=== PATIENT | female | born 1950 | race Caucasian/White ===

== ENCOUNTER 2020-03-07 10:24 | Outpatient (CLI) | payer MEDICARE, SELFPAY ==
--- NOTE | ~2020-03-07 | US_ITS ---
EXAMINATION: US venous doppler LE RT EXAM DATE: 03/07/2020 12:12 INDICATION: Right calf pain. TECHNIQUE: Multiple grayscale, color flow and Doppler images of the right lower extremity deep venous system were obtained and reviewed. There is no prior study for comparison. FINDINGS: The right common femoral, femoral and profunda veins demonstrate normal color flow, respira tory variation, augmentation and compressibility. Compressibility, color flow confirmed within the r ight popliteal, posterior tibial, peroneal, and greater saphenous veins. IMPRESSION: 1. No right lower extremity deep venous thrombosis. Reviewed, dictated and finalized at location A.
== END 2020-03-07 10:25 | disposition home or self-care (01) ==
LOC: CHSIMG 10:30
PROVIDERS: PCP Internal Medicine; Visit Provider Internal Medicine
DX: M79.661 Pain in right lower leg (principal)
CPT/HCPCS: 93971

== ENCOUNTER 2023-08-19 10:10 | Outpatient (CLI) | payer MEDICARE, SELFPAY ==
[2023-08-19 10:26] LABS: Basophils Absolute Auto 0.02 K/mm3 (0.00-0.10); Basophils Percent Auto 0.3 % (0.0-1.0); Eosinophils Absolute Auto 0.04 K/mm3 (0.02-0.50); Eosinophils Percent Auto 0.6 % (1.0-6.0); Hematocrit 43.8 % (35.0-42.0); Immature Granulocyte Absolute 0.02 K/mm3 (0.00-0.00); Immature Granulocyte Percent A 0.3 % (0.0-0.0); Lymphocytes Absolute Auto 1.87 K/mm3 (1.10-4.50); Lymphocytes Percent Auto 27.4 % (18.0-42.0); Mean Corpuscular Hemoglobin 28.9 pg (27.0-31.0); Mean Corpuscular Volume 90.5 fL (78.0-102.0); Mean Platelet Volume 9.4 fl (9.2-11.8); Monocytes Absolute Auto 0.71 K/mm3 (0.10-0.90); Monocytes Percent Auto 10.4 % (2.0-11.0); Neutrophils Absolute Auto 4.2 K/mm3 (1.7-7.2); Platelet Count Result 215 K/mm3 (150-420); Red Blood Count 4.84 M/mm3 (4.20-5.40); Red Cell Distribution Width 13.2 % (11.6-14.4); White Blood Count 6.8 K/mm3 (4.8-10.8)
[2023-08-19 10:50] LABS: Appearance Urine Clear (Clear); Bilirubin Urine Negative (Negative); Blood Urine Negative (Negative); Color Urine Light Yellow (Yellow); Glucose Urine UA Negative (Negative); Ketones Urine Negative (Negative); Leukocyte Esterase Ur 1+ (Negative); Nitrate Urine Negative (Negative); Protein Urine Negative (Negative); Urobilinogen Urine 0.2 mg/dL (0.2-1.0); pH Urine 7.5 (5.0-8.0)
[2023-08-19 11:10] LABS: Add Urine Microscopic? YES; RBC Urine None seen /hpf (0-2); WBC Urine 0-3 /hpf (0-3)
[2023-08-19 11:11] LABS: Amorphous Sediment Urine Moderate; Bacteria Urine 1+ /hpf; Squamous Epithelial Cell Urine Few /hpf (Few)
[2023-08-19 11:17] LABS: Alanine Aminotransferase 25 U/L (14-59); Albumin Level 3.7 g/dL (3.4-5.0); Alkaline Phosphatase 70 U/L (46-116); Anion Gap 8 mmol/L (8-16); Aspartate Amino Transferase 14 U/L (15-37); Bilirubin,Total 0.4 mg/dL (0.00-1.00); Blood Urea Nitrogen 16 mg/dL (7-18); Calcium 8.9 mg/dL (8.5-10.1); Carbon Dioxide 32 mmol/L (21-32); Chloride 108 mmol/L (98-108); Cholesterol 223 mg/dL (0-200); Estimated Glomerular Filt Rate > 60; Glucose 93 mg/dL (70-99); HDL Direct 65 mg/dL (40-60); LDL Cholesterol Calculated 135 mg/dL (<130); Osmolality Calculated 307 mOsm/kg (285-295); Potassium 4.4 mmol/L (3.5-5.1); Sodium 148 mmol/L (136-145); Thyroid Stimulating Hormone 0.01 uIU/mL (0.36-3.74); Total Protein 6.8 g/dL (6.4-8.2); Triglycerides 113 mg/dL (0-150)
== END 2023-08-19 10:11 | disposition home or self-care (01) ==
PROVIDERS: PCP Internal Medicine; Visit Provider Internal Medicine
DX: I10 Essential (primary) hypertension (principal); Z78.0 Asymptomatic menopausal state
CPT/HCPCS: 36415; 80053; 80061; 81001; 84443; 85025

== ENCOUNTER 2023-08-20 09:22 | Outpatient (CLI) | payer MEDICARE, SELFPAY ==
--- NOTE | ~2023-08-20 | XR_ITS ---
Clinical Indication: Hypertension, hyponatremia PA and lateral views of the chest: Comparison: 02/21/2018 Findings: The lungs are clear, without evidence of focal consolidation or pleural effusion. Cardiome diastinal silhouette is within normal limits. Bones and soft tissues are unremarkable. Impression: Normal chest. Reviewed, dictated and finalized at [facility]. TER CHECKER Impression: Normal chest.
--- NOTE | 2023-08-20 09:32 | ECG_ITS ---
Measurements Intervals [place] Rate: 53 P: 56 OK: 157 QRS: 46 QRSD: 95 T: 62 QT: 435 QTc: 410 Interpretive Statements SINUS BRADYCARDIA MINIMAL Q WAVES- INFERIOR LEADS BORDERLINE T WAVE ABNORMALITY- ANTERIOR LEADS BASELINE ARTIFACT- I, III, AVR, AVL BORDERLINE ECG NO PREVIOUS ECG AVAILABLE FOR COMPARISON Electronically Signed On 08-20-2023 9:49:24 ENGINEERING ANALYST by Phil Lynch D.O.
== END 2023-08-20 09:23 | disposition home or self-care (01) ==
PROVIDERS: PCP Internal Medicine; Visit Provider Internal Medicine
DX: I10 Essential (primary) hypertension (principal); R00.1 Bradycardia, unspecified
CPT/HCPCS: 71046; 93005

== ENCOUNTER 2023-08-23 08:36 | Outpatient (CLI) | payer MEDICARE, SELFPAY ==
[2023-08-23 08:56] LABS: Bilirubin Urine Negative (Negative); Blood Urine Negative (Negative); Color Urine Light Yellow (Yellow); Glucose Urine UA Negative (Negative); Ketones Urine Negative (Negative); Leukocyte Esterase Ur 3+ (Negative); Nitrate Urine Negative (Negative); Protein Urine Negative (Negative); Specific Grav Ur 1.015 (1.010-1.020); Urobilinogen Urine 0.2 mg/dL (0.2-1.0)
[2023-08-23 09:03] LABS: Add Urine Microscopic? YES; Appearance Urine Slightly Cloudy (Clear); Bacteria Urine 2+ /hpf; RBC Urine None seen /hpf (0-2); Squamous Epithelial Cell Urine Few /hpf (Few)
[2023-08-23 09:58] LABS: Alanine Aminotransferase 27 U/L (14-59); Albumin Level 3.7 g/dL (3.4-5.0); Alkaline Phosphatase 70 U/L (46-116); Anion Gap 7 mmol/L (8-16); Aspartate Amino Transferase 16 U/L (15-37); Bilirubin,Total 0.5 mg/dL (0.00-1.00); Blood Urea Nitrogen 17 mg/dL (7-18); Calcium 8.7 mg/dL (8.5-10.1); Carbon Dioxide 31 mmol/L (21-32); Chloride 105 mmol/L (98-108); Estimated Glomerular Filt Rate > 60; Glucose 88 mg/dL (70-99); Osmolality Calculated 296 mOsm/kg (285-295); Potassium 4.4 mmol/L (3.5-5.1); Sodium 143 mmol/L (136-145); Total Protein 6.9 g/dL (6.4-8.2)
== END 2023-08-23 08:37 | disposition home or self-care (01) ==
LOC: CHSLAB 08:44
PROVIDERS: PCP Internal Medicine; Visit Provider Internal Medicine
DX: I10 Essential (primary) hypertension (principal); E87.0 Hyperosmolality and hypernatremia
CPT/HCPCS: 36415; 80053; 81001

== ENCOUNTER 2023-08-30 13:01 | Outpatient (CLI) | payer MEDICARE, SELFPAY ==
--- NOTE | ~2023-08-30 | MM_ITS ---
EXAMINATION: MM screening kathy BI w jes HISTORY: Screening mammogram TECHNIQUE: Craniocaudal and mediolateral oblique 3-D tomosynthesis images were obtained and synthetic 2-D images were generated. CAD analysis was submitted and interpreted. COMPARISON: 05/10/2011 bilateral screening mammogram BREAST PARENCHYMAL COMPOSITION: The breasts are almost entirely fatty. FINDINGS: There is no evidence of suspicious mass, calcification, or architectural distortion to sugg est malignancy in either breast. There has been no suspicious interval change. IMPRESSION: 1. No mammographic evidence of malignancy. 2. Recommend routine screening mammography in one year. BI-RADS Category 1: Negative Reviewed, dictated and finalized at location A.
--- NOTE | ~2023-08-30 | DEXA_ITS ---
Bone Density Report Name: NICK OSBORNE Age: 73 Sex: Female Ethnicity: White Date of : 1950 Indication: postmenopausal; screening for osteoporosis; Referring Provider: Dane Alvarez Study: Bone densitometry was performed. Exam Date: August 30, 2023 Accession number: [id number] Bone Density: Region BMD T-score Z-score Classification AP Spine(L1-L4) 0.826 -2.0 0.3 Osteopenia Femoral Neck (Left) 0.623 -2.0 0.0 Osteopenia Total Hip (Left) 0.815 -1.0 0.7 Normal Femoral Neck (Right) 0.548 -2.7 -0.7 Osteoporosis Total Hip (Right) 0.740 -1.7 0.0 Osteopenia Femoral Neck Mean 0.586 -2.4 -0.4 Osteopenia Total Hip Mean 0.777 -1.3 0.4 Osteopenia World Health Organization criteria for BMD impression classify patients as: Normal (T-score at or above -1.0), Osteopenia (T-score between -1.0 and -2.5), or Osteoporosis (T-score at or below -2.5). 10-year Fracture Risk: FRAX not reported because: Some T-score for Spine Total or Hip Total or Femoral Neck at or below -2.5 Clinical Information Provided by Patient: Patient maximum height was 65 Menopause Age: 35 Does not regularly consume dairy products Drinks caffeinated beverages Onset of menses at age 12 Number of children 0 Impression: The patient has osteoporosis, based on the Right Femoral Neck T-score. Discussion: INCREASED RISK OF FRACTURE. BONE DENSITY IS UNDESIRABLY LOW AT ONE OR MORE SKELETAL SITES, CONSISTENT WITH POSTMENOPAUSAL OSTEOPOROSIS. This patient's lowest T-score meets the World Health Organization's (WHO) criteria for osteoporosis at one or more sites (T-score -2.5 or below). In untreated patients, the risk of osteoporotic fracture increases approximately two-fold for each 1.0 SD decrease in T-score. Low bone density is not the only risk factor for fracture; also consider factors such as patient's age, frailty or poor health, risk of falling, risk of injury, previous osteoporotic fracture, family history of osteoporosis, cigarette smoking, low body weight, etc. Not everyone with low bone mineral density has osteoporosis; osteomalacia and other metabolic bone disorders should also be considered. Patients who have osteoporosis should be evaluated for specific diseases and conditions (secondary causes) that may cause or contribute to bone loss. The [place] [employer]ocrinologists (AACE) and National Osteoporosis Foundation (NOF) recommend pharmacologic intervention for all postmenopausal women whose T-score is in this range. The patient should follow a healthful lifestyle (good nutrition with adequate calcium and vitamin D, and appropriate weight-bearing exercise). Follow-Up: Consider a repeat BMD and Vertebral Fracture Assessment (VFA) exam in 2 years or sooner if medically necessary, to reassess this
== END 2023-08-30 13:02 | disposition home or self-care (01) ==
LOC: CHSIMG 13:06
PROVIDERS: PCP Internal Medicine; Visit Provider Internal Medicine
DX: Z12.31 Encounter for screening mammogram for malignant neoplasm of breast (principal); Z78.0 Asymptomatic menopausal state; M85.89 Other specified disorders of bone density and structure, multiple sites; M81.0 Age-related osteoporosis without current pathological fracture
CPT/HCPCS: 77063; 77067; 77080

== ENCOUNTER 2023-09-06 14:50 | Outpatient (CLI) | payer MEDICARE, OTHER, SELFPAY ==
--- NOTE | 2023-09-06 14:54 | ECHO_ITS ---
Patient Info Name: Leigh Howard Age: 73 years : 1950 Gender: Female Ht: 65 in Wt: 210 lbs BSA: 2.13 m2 HR: 65 bpm BP: 180 / 92 mmHg Heart Rhythm: Sinus Rhythm Technical Quality: Good Exam Date: 09/06/2023 2:49 PM Exam Location: Echo Lab Patient Status: Outpatient Admit Date: 09/06/2023 Staff Ordering Physician: Dane Alvarez MD Buggy Loader: Mago Dc RDCS Attending Provider: Dane Alvarez MD Exam Type: CA echo doppler color flow Study Info Indications - abn ekg Complete two-dimensional, color flow and Doppler transthoracic echocardiogram is performed. Summary 1. Complete two-dimensional, color flow and Doppler transthoracic echocardiogram is performed. 2. Left ventricular chamber dimension is normal. 3. Left ventricular systolic function is normal, estimated at 60-65%. 4. The left ventricular diastolic function is grade I diastolic dysfunction. 5. E/e' 2 is not elevated. 6. Left atrial chamber dimension is mildly enlarged. 7. There is mild aortic valve sclerosis. 8. There is mild aortic valve regurgitation. 9. No pulmonary hypertension, estimated pulmonary arterial systolic pressure is 14 mmHg. Left Ventricle E/e' 2 is not elevated. Left ventricular chamber dimension is normal. Left ventricular systolic function is normal, estimated at 60-65%. The left ventricular diastolic function is grade I diastolic dysfunction. Right Ventricle Right ventricular systolic function is normal and with normal TAPSE 3.9 cm. Right ventricular chamber dimension is normal. Left Atria Left atrial chamber dimension is mildly enlarged. Right Atria Right atrial chamber dimension is normal. Aortic Valve The aortic valve is trileaflet. There is mild aortic valve sclerosis. There is no aortic valve stenosis. There is mild aortic valve regurgitation. Pulmonic Valve There is no pulmonic regurgitation. Mitral Valve There is no mitral valve stenosis. There is no mitral valve regurgitation. Tricuspid Valve There is no tricuspid valve regurgitation. No pulmonary hypertension, estimated pulmonary arterial systolic pressure is 14 mmHg. Pericardium/Pleural There is no pericardial effusion. Inferior Vena Cava Normal inferior vena cava with >50% collapse upon inspiration consistent with normal right atrial pressure, 5 mmHg. Aorta The aortic root size at the sinus of Valsalva is normal. Left Ventricular Outflow Tract Name Value Normal LVOT 2D LVOT Diameter 2.0 cm LVOT Doppler LVOT Peak Velocity 112 cm/s LVOT Peak Gradient 5 mmHg LVOT Mean Gradient 3 mmHg LVOT VTI 37 cm LVOT VTI/AV VTI Ratio 0.9 LVOT Stroke Volume 116 ml Pulmonic Valve Name Value Normal RVOT Doppler RVOT Peak Gradient 2 mmHg PV Doppler
== END 2023-09-06 14:51 | disposition home or self-care (01) ==
LOC: CHSIMG 14:51
PROVIDERS: PCP Internal Medicine; Visit Provider Internal Medicine
DX: R94.31 Abnormal electrocardiogram [ECG] [EKG] (principal); I35.8 Other nonrheumatic aortic valve disorders
CPT/HCPCS: 93306

== ENCOUNTER 2023-09-07 01:16 | Day surgery (SDC) | payer MEDICARE, OTHER, SELFPAY ==
[2023-08-31 16:11] VITALS: BMI 32.8
[2023-09-07 07:08] VITALS: BP 181/77; PULSE 56; RESP 18; TEMP 36.4; O2SAT 99; BMI 33.0
[2023-09-07] MEDS: LACTATED RINGERS 1,000 ML 150 ML IV CONT (07:12)
--- NOTE | 2023-09-07 07:45 | P.PNAN_ITS ---
Anes - Initial Pre Proc Eval Procedure: Operation Date: 09/07/23 08:30 Proposed Procedures p Screening Colonoscopy - Xander Mathias DO Date/Time: 09/07/23 07:45 Surgeon: Xander Mathias DO Pre Op Diagnosis: Screening for Malignant Neoplasm of Colon Patient Data Age: 73 Gender: F Height: 1.68 m Weight: 92.8 kg Last Vital Signs Temp 97.5 F L 09/07/23 07:08 Pulse 56 L 09/07/23 07:08 Resp 18 09/07/23 07:08 BP 181/77 H 09/07/23 07:08 Pulse Ox 99 09/07/23 07:08 O2 Del Method Room Air 09/07/23 07:08 Allergies Allergy/AdvReac Type Severity Reaction Status Date / Time No Known Allergies Allergy Verified 09/07/23 07:07 Home Medications Medication Instructions Recorded Confirmed Type diphenhydramine HCl 25 mg tablet 25 mg PO BID PRN Sinus Symptoms 08/31/23 09/07/23 History (Benadryl Allergy) ondansetron HCl 4 mg tablet 4 mg PO Q6H PRN Nausea And 09/06/23 Rx Vomiting #4 tabs Patient hx anesthesia problems: none Family hx anesthesia problems: none Results Review: All pre-operative results and documents have been reviewed as part of the pre- operative evaluation. [facility] Social History Social History Smoking status: Never smoker Alcohol intake: current Substance use: never Substance use type: does not use Living arrangements: with family Spiritual care concerns: No Anes - Eval Final PreProcedure Day of Procedure 09/07/23 07:45 Patient weight: obese Heart: regular rate and rhythm Lungs: clear to auscultation Airway: Mallampati scale class II Neurological: alert and oriented Last oral intake: >/= 8 hours ASA classification: II Emergent: no Anesthetic plan: proceed Anesthesia type and monitoring: general GIVS and standard monitoring Results Review: All pre-operative results and documents have been reviewed as part of the pre- operative evaluation. Informed Consent: The patient's anesthetic plan and its attendant risks and benefits were discussed with the patient/family/POA. Questions were solicited and answers provided to the satisfaction of the patient/family/POA.
--- NOTE | 2023-09-07 07:59 | PM.IMHP ---
H&P: HPI History of Present Illness Date/Time: 09/07/23 07:59 Chief Complaint: Screening for colorectal cancer Narrative: this is a 73-year-old woman who presents for colonoscopy. Her last colonoscopy was 20 years ago. She denies any hematochezia or melena. She denies any family history of colon cancer. Review of Systems Review of Systems: All systems reviewed & are unremarkable except as noted in HPI and below Constitutional: Constitutional: Denies chills, Denies fever(s), Denies headache(s) and Denies weight loss Eyes: Eyes: Denies change in vision ENT: Denies dizziness, Denies headache(s), Denies neck mass and Denies throat swelling Cardiovascular: Cardiovascular: Denies chest pain, Denies lightheadedness and Denies dyspnea Respiratory: Respiratory: Denies cough, Denies dyspnea and Denies wheezing Gastrointestinal: Gastrointestinal: Denies abdominal pain, Denies change in bowel habits, Denies nausea and Denies vomiting Genitourinary: Genitourinary: Denies hematuria and Denies dysuria Musculoskeletal: Musculoskeletal: Reports as per HPI Integumentary/Breasts: Skin/Breast: Reports as per HPI Neurologic: Denies dizziness and Denies headache(s) Allergic/Immunologic: Allergic/Immunologic: Denies throat swelling and Denies wheezing PMFSH Social History Social History Smoking status: Never smoker Alcohol intake: current Substance use: never Substance use type: does not use Living arrangements: with family Spiritual care concerns: No Meds Home Medications and Allergies Home Medications Medication Instructions Recorded Confirmed Type diphenhydramine HCl 25 mg tablet 25 mg PO BID PRN Sinus Symptoms 08/31/23 09/07/23 History (Benadryl Allergy) ondansetron HCl 4 mg tablet 4 mg PO Q6H PRN Nausea And 09/06/23 Rx Vomiting #4 tabs Allergies Allergy/AdvReac Type Severity Reaction Status Date / Time No Known Allergies Allergy Verified 09/07/23 07:07 Vital Signs Vital Signs - 24 hr 09/07/23 07:08 Temperature 36.4 C L Pulse Rate 56 L Respiratory Rate 18 Blood Pressure 181/77 H Pulse Oximetry 99 Oxygen Delivery Room Air Exam Const: General: no acute distress and alert Orientation/consciousness: patient oriented x3 HENMT: Head: normocephalic and atraumatic Ears: hearing grossly normal bilaterally Face/Nose/Sinus: Normal nares present Mouth: Yes Normal oral and palatal mucosa present Eyes: Periorbital: periorbital findings normal Sclera: sclerae normal EOM: EOMs intact bilaterally Neck: Neck: normal visual inspection, no lymphadenopathy and trachea midline Chest: Chest palpation & inspection: normal inspection of the chest Resp: Effort & Inspection: normal respiratory effort Auscultation: clear to auscultation bilaterally Cardio: Jugular venous distension: no JVD Rate: regular rate Rhythm: regular rhythm Heart sounds: S1 normal heart sound present and S2 normal heart sound present Peripheral pulses: Peripheral pulses 2+ throughout GI: Inspection: normal to inspection GI Palp: Yes Soft to palpation, No Tenderness to palpation present (GI), No Guarding due to palpation present (GI) and No Rebound tenderness present Percussion: Yes normal to percussion Auscultation: normal bowel sounds : General: Yes no CVA tenderness Back/Spine/Pelvis: Back: no CVA tenderness Neuro: General: patient oriented x3, no focal motor deficits and CN's II-XI intact bilaterally Cognition (Neuro): normal cognition Speech: normal speech Motor exam (neuro): 5/5 motor strength present throughout Extrem: General: capillary refill normal and no clubbing, cyanosis or edema Assessment and Plan Assessment and plan (1) Screening for colorectal cancer: Code(s): Z12.11 - Encounter for screening for malignant neoplasm of colon; Z12.12 - Encounter for screening for malignant neoplasm of rectum Status: Acute Assessment and Plan: I have recommended colonoscop
[2023-09-07 08:52] VITALS: BP 125/64; PULSE 58; RESP 19; O2SAT 99
[2023-09-07 09:02] VITALS: BP 137/68; PULSE 54; RESP 16; O2SAT 99
[2023-09-07 09:12] VITALS: BP 157/70; PULSE 53; RESP 16; O2SAT 99
== END 2023-09-07 09:36 | disposition home or self-care (01) ==
PROVIDERS: PCP Internal Medicine; Visit Provider Surgery
PROC: 0DJD8ZZ Inspection of Lower Intestinal Tract, Via Natural or Artificial Opening Endoscopic (ICD-10-PCS; CPT 45378; principal; 2023-09-07 08:30)
DX: Z12.11 Encounter for screening for malignant neoplasm of colon (principal); D12.0 Benign neoplasm of cecum; D12.3 Benign neoplasm of transverse colon; D12.5 Benign neoplasm of sigmoid colon; K57.30 Diverticulosis of large intestine without perforation or abscess without bleeding; E66.9 Obesity, unspecified; Z68.33 Body mass index [BMI] 33.0-33.9, adult
CPT/HCPCS: 45385; 88305; J2704; J7120

== ENCOUNTER 2023-09-13 09:01 | Outpatient (CLI) | payer MEDICARE, OTHER, SELFPAY ==
--- NOTE | ~2023-09-13 | US_ITS ---
EXAMINATION: US thyroid DATE: 09/13/2023 09:56 INDICATION: Hyperthyroidism. TECHNIQUE: Multiple ultrasound images of the thyroid were obtained. COMPARISON: None. FINDINGS: The right thyroid lobe measures 3.8 x 1.6 x 1.7 cm. The left thyroid lobe measures 5.8 x 2.7 x 2.7 c m. In the right thyroid lobe, there is an 11 mm solid, hypoechoic, wider than tall nodule with lobul ated margin without echogenic foci (TI-RADS TR4). In the left thyroid lobe, there is a 16 mm solid, h yperechoic, wider than tall nodule with smooth margin without echogenic foci (TR3). In the left thyro id lobe, there is a 3.4 cm predominantly solid, hypoechoic, wider than tall nodule with smooth margin without echogenic foci (TR4). IMPRESSION: 1. Multinodular goiter. Ultrasound-guided fine-needle aspiration of the 3.4 cm left thyroid nodule is recommended. Reviewed, dictated and finalized at location E.
== END 2023-09-13 09:02 | disposition home or self-care (01) ==
LOC: CHSIMG 09:04
PROVIDERS: PCP Internal Medicine; Visit Provider Internal Medicine
DX: E05.90 Thyrotoxicosis, unspecified without thyrotoxic crisis or storm (principal); E04.2 Nontoxic multinodular goiter
CPT/HCPCS: 76536

== ENCOUNTER 2024-05-26 14:23 | Outpatient (CLI) | payer MEDICARE, OTHER, SELFPAY ==
--- NOTE | ~2024-05-26 | XR_ITS ---
XR ribs LT 2V DATE: 05/26/2024 14:57 INDICATION: Left rib pain TECHNIQUE: COMPARISON: None FINDINGS: There is a subtle minimally displaced anterior left fifth recent rib fracture. No other rib fracture or rib bone destruction is noted. Diffuse osteopenia. No left lung infiltrate, consolidation, pleural effusion or pneumothorax is detected. IMPRESSION: Subtle minimally displaced anterior recent left fifth rib fracture Reviewed, dictated and finalized at location A. WHEEL ALIGNMENT SPECIALIST
--- NOTE | ~2024-05-26 | XR_ITS ---
XR lumbar spine 2-3V DATE: 05/26/2024 14:57 INDICATION: Mid lower back pain TECHNIQUE: AP, lateral, coned lateral lumbosacral views COMPARISON: None FINDINGS: There is minimal lumbar levoscoliosis. Osteopenia. There is prominent degenerative spurring in the lower thoracic spine, especially T12-L1, to a lesser extent L1-2. There is moderate loss of height at the L4-5 and L5-S1 interspaces. There is degenerative change at the lumbar apophyseal joints with associated slight grade 1 anterolis thesis at L3-4 and L4-5. No fracture or bone destruction. Included lower thoracic and lumbar pedicles are intact. The sacroiliac joints appear normal. IMPRESSION: Osteopenia Minimal lumbar levoscoliosis Multilevel degenerative disc disease, most prominent at L4-5 and L5-S1 Degenerative spurring of the lower thoracic and lumbar spine Reviewed, dictated and finalized at location A. PICKER CLOTH
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
== END 2024-05-26 14:24 | disposition home or self-care (01) ==
LOC: CHSIMG 14:25
PROVIDERS: PCP Internal Medicine; Visit Provider Internal Medicine
DX: R07.81 Pleurodynia (principal); M54.50 Low back pain, unspecified; S22.32XA Fracture of one rib, left side, initial encounter for closed fracture; M85.88 Other specified disorders of bone density and structure, other site; M41.86 Other forms of scoliosis, lumbar region; M51.369 Other intervertebral disc degeneration, lumbar region without mention of lumbar back pain or lower extremity pain; M43.06 Spondylolysis, lumbar region
CPT/HCPCS: 71100; 72072; 72100

== ENCOUNTER 2024-07-27 16:27 | Outpatient (RCR) | payer MEDICARE, OTHER, SELFPAY ==
--- NOTE | 2024-07-27 17:41 | OPREHPOC ---
Outpatient Therapy Plan of Care This is a Multidisciplinary Plan of Care that may contain components documented by all disciplines (PT, OT, and ST.) PT Problem 1 PT Problem #1 Knowledge Deficit PT Goal 1 Goal / Goal Update 1. independent and compliant with HEP Target Visit 6 PT Problem 2 PT Problem #2 Pain PT Goal 1 Goal / Goal Update 1. decrease pain at worst to 4/10 or less in the lower back Target Visit 12 PT Problem 3 PT Problem #3 Impaired Range of Motion PT Goal 1 Goal / Goal Update 1. 30 degrees bilateral active lumbar side bending 2. 15 degrees active lumbar extension 3. active lumbar flexion to the ankles 4. no gowers sign Target Visit 12 PT Problem 4 PT Problem #4 Impaired Strength PT Goal 1 Goal / Goal Update 1. improve bilateral hip strength to 4/5 or better overall 2. improve bilateral knee strength to 4+/5 or better overall 3. patient to easily transition in and out of bed (supine) without assistance Target Visit 12 PT Problem 5 PT Problem #5 Impaired Functional Mobility PT Goal 1 Goal / Goal Update 1. oswestry to display less than 20% functional deficits 2. patient to lay on her back to sleep 3. sleep 4 nights a week or better without back pain 4. perform house hold duties with minimal back pain Target Visit 12
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
--- NOTE | 2024-08-21 15:31 | OPREHPOC ---
Outpatient Therapy Plan of Care This is a Multidisciplinary Plan of Care that may contain components documented by all disciplines (PT, OT, and ST.) PT Problem 1 PT Problem #1 Knowledge Deficit PT Goal 1 Goal / Goal Update 1. independent and compliant with HEP Target Visit 6 Progress Not Met PT Problem 2 PT Problem #2 Pain PT Goal 1 Goal / Goal Update 1. decrease pain at worst to 4/10 or less in the lower back Target Visit 12 Progress Not Met PT Problem 3 PT Problem #3 Impaired Range of Motion PT Goal 1 Goal / Goal Update 1. 30 degrees bilateral active lumbar side bending 2. 15 degrees active lumbar extension 3. active lumbar flexion to the ankles 4. no gowers sign Target Visit 12 Progress Not Met PT Problem 4 PT Problem #4 Impaired Strength PT Goal 1 Goal / Goal Update 1. improve bilateral hip strength to 4/5 or better overall -met 2. improve bilateral knee strength to 4+/5 or better overall -met 3. patient to easily transition in and out of bed (supine) without assistance Target Visit 12 Progress Partially Met PT Problem 5 PT Problem #5 Impaired Functional Mobility PT Goal 1 Goal / Goal Update 1. oswestry to display less than 20% functional deficits 2. patient to lay on her back to sleep 3. sleep 4 nights a week or better without back pain 4. perform house hold duties with minimal back pain Target Visit 12 Progress Not Met
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
--- NOTE | 2024-08-25 15:56 | OPREHPOC ---
Outpatient Therapy Plan of Care This is a Multidisciplinary Plan of Care that may contain components documented by all disciplines (PT, OT, and ST.) PT Problem 1 PT Problem #1 Knowledge Deficit PT Goal 1 Goal / Goal Update 1. independent and compliant with HEP Target Visit 6 Progress Not Met PT Problem 2 PT Problem #2 Pain PT Goal 1 Goal / Goal Update 1. decrease pain at worst to 4/10 or less in the lower back Target Visit 12 Progress Not Met PT Problem 3 PT Problem #3 Impaired Range of Motion PT Goal 1 Goal / Goal Update 1. 30 degrees bilateral active lumbar side bending 2. 15 degrees active lumbar extension 3. active lumbar flexion to the ankles 4. no gowers sign Target Visit 12 Progress Not Met PT Problem 4 PT Problem #4 Impaired Strength PT Goal 1 Goal / Goal Update 1. improve bilateral hip strength to 4/5 or better overall -not met 2. improve bilateral knee strength to 4+/5 or better overall -not met 3. patient to easily transition in and out of bed (supine) without assistance met Target Visit 12 Progress Partially Met PT Problem 5 PT Problem #5 Impaired Functional Mobility PT Goal 1 Goal / Goal Update 1. oswestry to display less than 20% functional deficits 2. patient to lay on her back to sleep. not met 3. sleep 4 nights a week or better without back pain 4. perform house hold duties with minimal back pain Target Visit 12 Progress Not Met
--- NOTE | 2024-08-25 15:56 | PTOPDC ---
Assessment and note entered by JT File, PT Evaluation Information Assessment Status Discharge ICD-10 Condition Codes (PT) Pain in low back M54.50 Onset 05/13/24 Subjective Information patient reports she is a little better since starting therapy, but overall still feels the same . she reports the pain has not resolved, and she still struggles with all her daily activities. she has to sleep on her side in bed, and pushes through the pain every day. Reported Pain Level Pain Score 5: Self Report Pain Score 6: Self Report Assessment PT Clinical Summary mrs. he presents to skilled PT for her 12th skilled therapy visit. she presents with continued pain and limited tolerance for standing and lumbar movement. she has met only HEP goal as of this date. due to a lack of significant change/ progress, we are going to DC skilled PT at this time, and she will follow up with her PCP for next steps. Plan of Care PT Services Indicated Yes
== END 2024-08-25 16:06 | disposition home or self-care (01) ==
LOC: CHSPT 16:27
PROVIDERS: PCP Internal Medicine; Visit Provider Internal Medicine
DX: M54.50 Low back pain, unspecified (principal)
CPT/HCPCS: 97014; 97110; 97140; 97150; 97161; 97530; G0283

== ENCOUNTER 2024-09-14 09:56 | Outpatient (CLI) | payer MEDICARE, OTHER, SELFPAY ==
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
--- OUTSIDE RECORDS SUMMARY | 2024-09-14 10:57 | XMS_ITS | Encounter Summary ---
Author Organization [facility] Address [address] [place] [address] Phone Care Team Providers Care Senior Restaurant Manager Name Role Phone Dane Alvarez MD Primary Care Provider [phone] Encounter Details Date Type Department Care Team (Late st Contact Info) Description 08/08/2024 Results Follow-Up [facility] Endocrinology Metabolism and Lipid [address] [facility] 5th [place] [address] [place] [address] Edyta Matos MD [address] [place] [address] Social History Tobacco Use Types Packs/Day Years Used Date Smoking Tobacco: Never Comments Unknown Sex and Gender Information Value Date Recorded Sex Assigned at Not on file Legal Sex Female 10:30 AM CDT Gender Identity Not on file Sexual Orientation Not on file documented as of this encounter Plan of Treatment Not on file documented as of this encounter Visit Diagnoses Not on filedocumented in this encounter Care Teams Senior Restaurant Manager Relationship Specialty Start Date End Date Dane Alvarez MD PCP - General Internal Medicine 09/14/23 documented as of this encounter
--- OUTSIDE RECORDS SUMMARY | 2024-09-14 10:57 | XMS_ITS | Clinical Summary ---
Author Organization [place] [id number] Address [address] [place] [address] Care Team Providers Care Hydraulic Jack Mechanic Name Role Phone Dane Alvarez MD Primary Care Provider [phone] Allergies No known active allergies Medications alendronate (FOSAMAX) 70 mg tablet PLEASE SEE ATTACHED FOR DETAILED DIRECTIONS 03/02/20 24 Active methIMAzole (TAPAZOLE) 5 mg tabletIndications:S ubclinical hyperthyroidism 2.5mg (half tab) po daily 45 tablet 1 06/26/19 25 Active Active Problems No known active problems Encounters Date Type Department Care Team Description 09/11/2024 12:01 PM CDT - 09/11/2024 11:59 PM CDT Hospital Encounter [facility] [address] [place] [address] Multinodular goiter Discharge Disposition: Discharge to home or self care 09/11/2024 Results Follow-Up [facility] Endocrinology Metabolism and Lipid [address] [facility] 5th [place] [address] [place] [address] Edyta Matos MD 08/08/2024 Results Follow-Up [facility] Endocrinology Metabolism and Lipid [address] [facility] 5th [place] [address] [place] [address] Edyta Matos MD 08/07/2024 Orders Only [facility] Endocrinology Metabolism and Lipid [address] [facility] 13th [place] [address] [place] [address] Edyta Matos MD 07/06/2024 Telephone [facility] Endocrinology Metabolism and Lipid [address] [facility] 5th [place] [address] [place] [address] Uzma Garrett RMA 06/16/2024 12:25 PM LOG SKIDDER - 06/16/2024 11:59 PM LOG SKIDDER Hospital Encounter [facility] Radiology [address] [place] [address] Discharge Disposition: Discharge to home or self care 06/16/2024 12:25 PM LOG SKIDDER - 06/16/2024 11:59 PM LOG SKIDDER Hospital Encounter [facility] Radiology [address] [place] [address] Subclinical hyperthyroidism; Multinodular goiter Discharge Disposition: Discharge to home or self care from Last 3 Months Social History Tobacco Use Types Packs/Day Years Used Date Smoking Tobacco: Never Comments Unknown Sex and Gender Information Value Date Recorded Sex Assigned at Not on file Legal Sex Female 10:30 AM CDT Gender Identity Not on file Sexual Orientation Not on file Obstetrics History Last Filed Vital Signs Vital Sign Reading Time Taken Comments Blood Pressure 141/84 05/12/2024 10:50 AM LOG SKIDDER Pulse 56 05/12/2024 10:50 AM LOG SKIDDER Temperature 36.7 C (98 F) 04/06/2024 3:02 PM CDT Respiratory Rate - - Oxygen Saturation - - Inhaled Oxygen Concentration - - Weight 94.3 kg (208 lb) 05/12/2024 10:50 AM LOG SKIDDER Height 165.1 cm (5' 5 ) 05/12/2024 10:50 AM LOG SKIDDER Body Mass Index 34.61 05/12/2024 10:50 AM LOG SKIDDER Plan of Treatment Health Maintenance Due Date Last Done Comments Breast Cancer Screening-Mammogram 1950 Colon Cancer Screening-Colonoscopy 1950 Depression Screening 1950 Fall Risk Assessment 1950 Hepatitis C Screening 1950 Osteoporosis Screening-Bone Density Scan 1950 DTaP/Tdap/Td Vaccine (1 - Tdap) 1961 Hepatitis B Screening 01/02/1968 Pneumococcal vaccine 65+ (1 of 1 - PCV) 01/02/2000 Zoster Vaccine (1 of 2) 01/02/2000 Well Visit 65+ 2015 Covid-19 Vaccine ( season) 2024 03/25/2021, 08/13/2020, 07/23/2020 Influenza Vaccine (#1) 2024 04/12/2015 Procedures Procedure Name Priority Date/Time Associated Diagnosis Comments US THYROID Schedule Routine, Read Routine (OP Routine) 09/11/2024 1:21 PM CDT Multinodular goiter T3, FREE Routine 08/07/2024 1:50 PM LOG SKIDDER TSH Routine 08/07/2024 1:50 PM LOG SKIDDER T4, FREE Routine 08/07/2024 1:50 PM LOG SKIDDER COPY(IES) SENT TO: Routine 08/07/2024 1:50 PM LOG SKIDDER NM THYROID IMAGING Schedule Routine, Read Routine (OP Routine) 06/16/2024 1:44 PM LOG SKIDDER Subclinical hyperthyroidism Multinodular goiter from Last 3 Months Results * US Thyroid (09/11/2024 1:21 PM CDT) Anatomical Region Laterality Modality Head and Neck N/A Ultrasound 09/11/2024 1:22 PM CDT Impressions 09/11/2024 1:22 PM CDT 1. Stable 3.8 cm TR4 left lower thyroid nodule with previous benign cytologic results for which fine needle aspiration was recommended. 2. Stable cytologically benign 2.0 cm left upper thyroid nodule. 3. No new suspicious thyroid nodules. ACR TI-RADS Recommendations FNA should only be recommended on a maximum of 2 nodules. A recommendation for follow-up should only be provided for a maximum of 4 nodules. TR5 (>=7 points) (risk of malignancy > 20%) >=1 cm: FNA 0.5-0.9 cm: follow-up US every year for 5 years <0.5 cm: no further evaluation TR4 (4-6 points) (risk of malignancy 5-20%) >=1.5 cm: FNA 1-1.4 cm: follow-up US in 1, 2, 3, and 5 years <1.0 cm: no further evaluation TR3 (3 points) (risk of malignancy 2-5%) >=2.5 cm: FNA 1.5-2.4 cm: follow-up US in 1, 3, and 5 years <1.5 cm: no further evaluation TR2 (2 points) and TR1 (0 points) (risk of malignancy < 2%) No FNA or follow-up US Electronically signed by: Eladia Neal M.D. Narrative 09/11/2024 1:22 PM CDT EXAMINATION: THYROID SONOGRAM HISTORY: 74-year-old woman with multiple thyroid nodules; follow-up Prior Biopsy: Yes prior fine-needle aspiration of 2 left thyroid nodules; the upper thyroid nodule with benign cytology in the lower with nondiagnostic results Patient Risk Factors: None Prior Ultrasound: 04/17/2024 FINDINGS: The thyroid is normal in size. Size right lobe: 5.3 cm craniocaudal, 1.6 cm transverse, 1.7 cm AP. Size left lobe: 6.3 cm craniocaudal, 2.9 cm transverse, 2.6 cm AP. Size isthmus: 0.4 cm AP. Estimated total number of nodules >/= 1 cm: 2 Number of spongiform nodules >/= 2 cm not described below (TR1): 0 Number of mixed cystic and solid nodules >/= 1.5 cm not described below (TR2): 0 Nodule 1: Location: Left upper . Size: 2.0 cm craniocaudal x 2.0 cm transverse x 1.7 cm AP (previously 1.9 cm craniocaudal x 1.5 cm transverse x 1.3 cm AP) Maximum Size: 2.0 cm Composition: Solid/almost completely solid (2) Echogenicity: Hyperechoic (1) Shape: Not taller than wide (0) Margins: Smooth (0) Echogenic foci: Punctate echogenic foci (3) Additional Echogenic foci 1: None (0) Additional Echogenic foci 2: None (0) Follow-up details: Prior biopsy: Yes with benign cytology on 04/28/2024 Significant change in size (>/= 20% in two dimensions and minimal increase of 2 mm): No Change in features: No Change in ACR TI-RADS risk category: No Nodule 2: Location: Left lower . Size: 3.8 cm craniocaudal x 3.4 cm transverse x 2.6 cm AP (previously 3.6 cm craniocaudal x 3.3 cm transverse x 2.5 cm AP) Maximum Size: 3.8 cm Composition: Mixed cystic and solid (1) Echogenicity: Hypoechoic (2) Shape: Not taller than wide (0) Margins: Smooth (0) Echogenic foci: Macrocalcifications (1) Additional Echogenic foci 1: None (0) Additional Echogenic foci 2: None (0) ACR TI-RADS total points: 4 ACR TI-RADS risk category: TR4 (4-6 points) Follow-up details: Prior biopsy: Yes with nondiagnostic cytology on 04/28/2024 Significant change in size (>/= 20% in two dimensions and minimal increase of 2 mm): No Change in features: No Change in ACR TI-RADS risk category: No Several subcentimeter hypoechoic TR 3 and TR 2 nodules in the right thyroid gland which require no further follow-up including a 0.7 x 0.7 x 0.6 cm hypoechoic nodule located posteriorly but ultimately within the right thyroid gland. Procedure Note Eladia Neal MD - 09/11/2024 EXAMINATION: THYROID SONOGRAM HISTORY: 74-year-old woman with multiple thyroid nodules; follow-up Prior Biopsy: Yes prior fine-needle aspiration of 2 left thyroid nodules; the upper thyroid nodule with benign cytology in the lower with nondiagnostic results Patient Risk Factors: None Prior Ultrasound: 04/17/2024 FINDINGS: The thyroid is normal in size. Size right lobe: 5.3 cm craniocaudal, 1.6 cm transverse, 1.7 cm AP. Size left lobe: 6.3 cm craniocaudal, 2.9 cm transverse, 2.6 cm AP. Size isthmus: 0.4 cm AP. Estimated total number of nodules >/= 1 cm: 2 Number of spongiform nodules >/= 2 cm not described below (TR1): 0 Number of mixed cystic and solid nodules >/= 1.5 cm not described below (TR2): 0 Nodule 1: Location: Left upper . Size: 2.0 cm craniocaudal x 2.0 cm transverse x 1.7 cm AP (previously 1.9 cm craniocaudal x 1.5 cm transverse x 1.3 cm AP) Maximum Size: 2.0 cm Composition: Solid/almost completely solid (2) Echogenicity: Hyperechoic (1) Shape: Not taller than wide (0) Margins: Smooth (0) Echogenic foci: Punctate echogenic foci (3) Additional Echogenic foci 1: None (0) Additional Echogenic foci 2: None (0) Follow-up details: Prior biopsy: Yes with benign cytology on 04/28/2024 Significant change in size (>/= 20% in two dimensions and minimal increase of 2 mm): No Change in features: No Change in ACR TI-RADS risk category: No Nodule 2: Location: Left lower . Size: 3.8 cm craniocaudal x 3.4 cm transverse x 2.6 cm AP (previously 3.6 cm craniocaudal x 3.3 cm transverse x 2.5 cm AP) Maximum Size: 3.8 cm Composition: Mixed cystic and solid (1) Echogenicity: Hypoechoic (2) Shape: Not taller than wide (0) Margins: Smooth (0) Echogenic foci: Macrocalcifications (1) Additional Echogenic foci 1: None (0) Additional Echogenic foci 2: None (0) ACR TI-RADS total points: 4 ACR TI-RADS risk category: TR4 (4-6 points) Follow-up details: Prior biopsy: Yes with nondiagnostic cytology on 04/28/2024 Significant change in size (>/= 20% in two dimensions and minimal increase of 2 mm): No Change in features: No Change in ACR TI-RADS risk category: No Several subcentimeter hypoechoic TR 3 and TR 2 nodules in the right thyroid gland which require no further follow-up including a 0.7 x 0.7 x 0.6 cm hypoechoic nodule located posteriorly but ultimately within the right thyroid gland. IMPRESSION: 1. Stable 3.8 cm TR4 left lower thyroid nodule with previous benign cytologic results for which fine needle aspiration was recommended. 2. Stable cytologically benign 2.0 cm left upper thyroid nodule. 3. No new suspicious thyroid nodules. ACR TI-RADS Recommendations FNA should only be recommended on a maximum of 2 nodules. A recommendation for follow-up should only be provided for a maximum of 4 nodules. TR5 (>=7 points) (risk of malignancy > 20%) >=1 cm: FNA 0.5-0.9 cm: follow-up US every year for 5 years <0.5 cm: no further evaluation TR4 (4-6 points) (risk of malignancy 5-20%) >=1.5 cm: FNA 1-1.4 cm: follow-up US in 1, 2, 3, and 5 years <1.0 cm: no further evaluation TR3 (3 points) (risk of malignancy 2-5%) >=2.5 cm: FNA 1.5-2.4 cm: follow-up US in 1, 3, and 5 years <1.5 cm: no further evaluation TR2 (2 points) and TR1 (0 points) (risk of malignancy < 2%) No FNA or follow-up US Electronically signed by: Eladia Neal M.D. Edyta Matos MD IMG US PROCEDURES Final Result * COPY(IES) SENT TO: (08/07/2024 1:50 PM LOG SKIDDER) COPY(IES) SENT TO: [facility] Comment: [address] [address] 08/07/2024 1:50 PM LOG SKIDDER 08/07/2024 1:51 PM LOG SKIDDER Edyta Matos MD LAB BLOOD ORDERABLES Final Resul t [facility] * T3, free (08/07/2024 1:50 PM LOG SKIDDER) Free T3 3.2 2.3 - 4.2 pg/mL [facility] 08/07/2024 1:50 PM LOG SKIDDER 08/07/2024 1:51 PM LOG SKIDDER Edyta Matos MD LAB BLOOD ORDERABLES Final Resul t Performing Organization Address [facility] Phone Number [facility] [address] [place] [address] * (ABNORMAL) TSH (08/07/2024 1:50 PM LOG SKIDDER) TSH 0.07(L) 0.40 - 4.50 mIU/L [facility] 08/07/2024 1:50 PM LOG SKIDDER 08/07/2024 1:51 PM LOG SKIDDER Edyta Matos MD LAB BLOOD ORDERABLES Final Resul t Performing Organization Address [facility] Phone Number [facility] [address] [place] [address] * T4, free (08/07/2024 1:50 PM LOG SKIDDER) Free T4 0.9 0.8 - 1.8 ng/dL [facility] 08/07/2024 1:50 PM LOG SKIDDER 08/07/2024 1:51 PM LOG SKIDDER Edyta Matos MD LAB BLOOD ORDERABLES Final Resul t Performing Organization Address [facility] Phone Number [facility] [address] [place] [address] * NM Thyroid Imaging (06/16/2024 1:44 PM LOG SKIDDER) Anatomical Region Laterality Modality N/A Nuclear Medicine 06/16/2024 4:22 PM LOG SKIDDER Impressions 06/16/2024 4:26 PM LOG SKIDDER Multinodular goiter, which is concordant with previous ultrasound findings dated 04/17/2024. Dictated by: Julius Shell M.D. The radiology attending physician has personally reviewed this study, and had reviewed and/or edited this written report and agrees with it. Electronically signed by: Tha Campos DO Narrative 06/16/2024 4:26 PM LOG SKIDDER EXAMINATION: THYROID SCINTIGRAPHY DATE: 06/16/2024 RADIOPHARMACEUTICAL: 10.66 mCi Tc-99m pertechnetate i.v. HISTORY: 74-year-old woman with multinodular goiter, subclinical hyperthyroidism. FINDINGS: The thyroid images demonstrate multiple thyroid nodules in the left lobe that do not demonstrate uptake. Enlarged left thyroid lobe. Findings are concordant with previous ultrasound examination. No ectopic tissues. Normal salivary gland activity. Procedure Note Tha Campos DO - 06/16/2024 EXAMINATION: THYROID SCINTIGRAPHY DATE: 06/16/2024 RADIOPHARMACEUTICAL: 10.66 mCi Tc-99m pertechnetate i.v. HISTORY: 74-year-old woman with multinodular goiter, subclinical hyperthyroidism. FINDINGS: The thyroid images demonstrate multiple thyroid nodules in the left lobe that do not demonstrate uptake. Enlarged left thyroid lobe. Findings are concordant with previous ultrasound examination. No ectopic tissues. Normal salivary gland activity. IMPRESSION: Multinodular goiter, which is concordant with previous ultrasound findings dated 04/17/2024. Dictated by: Julius Shell M.D. The radiology attending physician has personally reviewed this study, and had reviewed and/or edited this written report and agrees with it. Electronically signed by: Tha Campos DO Edyta Matos MD IM NM PROCEDURES Final Result from Last 3 Months Insurance [facility] [place] [address] [employer] [facility] [employer] [facility] Care Teams Hydraulic Jack Mechanic Relationship Specialty Start Date End Date Dane Alvarez MD PCP - General Internal Medicine 09/14/23
--- OUTSIDE RECORDS SUMMARY | 2024-09-14 10:57 | XMS_ITS | Referral Summary ---
Author Organization [place] [id number] [facility] Address [address] [place] [address] Care Team Providers Care Neck Pinner Name Role Phone Dane Alvarez MD Primary Care Provider [phone] Encounters Date Type Department Care Team Description 09/11/2024 Results Follow-Up [facility] Endocrinology Metabolism and Lipid [address] [facility] 5th [place] [address] [place] [address] Edyta Matos MD 09/11/2024 12:01 PM CDT - 09/11/2024 11:59 PM CDT Hospital Encounter [facility] [address] [place] [address] Multinodular goiter Discharge Disposition: Discharge to home or self care 08/08/2024 Results Follow-Up [facility] Endocrinology Metabolism and Lipid [address] [facility] 5th [place] [address] [place] [address] Edyta Matos MD 08/07/2024 Orders Only [facility] Endocrinology Metabolism and Lipid [address] [facility] 13th [place] [address] [place] [address] Edyta Matos MD 07/06/2024 Telephone [facility] Endocrinology Metabolism and Lipid [address] [facility] 5th [place] [address] [place] [address] Uzma Garrett RMA 06/16/2024 12:25 PM DIGITAL ANALYTICS MANAGER - 06/16/2024 11:59 PM DIGITAL ANALYTICS MANAGER Hospital Encounter [facility] Radiology [address] [place] [address] Discharge Disposition: Discharge to home or self care 06/16/2024 12:25 PM DIGITAL ANALYTICS MANAGER - 06/16/2024 11:59 PM DIGITAL ANALYTICS MANAGER Hospital Encounter [facility] Radiology [address] [place] [address] Subclinical hyperthyroidism; Multinodular goiter Discharge Disposition: Discharge to home or self care from Last 3 Months Allergies No known active allergies Medications alendronate (FOSAMAX) 70 mg tablet PLEASE SEE ATTACHED FOR DETAILED DIRECTIONS 03/02/20 24 Active methIMAzole (TAPAZOLE) 5 mg tabletIndications:S ubclinical hyperthyroidism 2.5mg (half tab) po daily 45 tablet 1 06/26/19 25 Active Active Problems No known active problems Social History Tobacco Use Types Packs/Day Years Used Date Smoking Tobacco: Never Comments Unknown Sex and Gender Information Value Date Recorded Sex Assigned at Not on file Legal Sex Female 10:30 AM CDT Gender Identity Not on file Sexual Orientation Not on file Last Filed Vital Signs Vital Sign Reading Time Taken Comments Blood Pressure 141/84 05/12/2024 10:50 AM DIGITAL ANALYTICS MANAGER Pulse 56 05/12/2024 10:50 AM DIGITAL ANALYTICS MANAGER Temperature 36.7 C (98 F) 04/06/2024 3:02 PM CDT Respiratory Rate - - Oxygen Saturation - - Inhaled Oxygen Concentration - - Weight 94.3 kg (208 lb) 05/12/2024 10:50 AM DIGITAL ANALYTICS MANAGER Height 165.1 cm (5' 5 ) 05/12/2024 10:50 AM DIGITAL ANALYTICS MANAGER Body Mass Index 34.61 05/12/2024 10:50 AM DIGITAL ANALYTICS MANAGER Plan of Treatment Not on file Procedures Procedure Name Priority Date/Time Associated Diagnosis Comments US THYROID Schedule Routine, Read Routine (OP Routine) 09/11/2024 1:21 PM CDT Multinodular goiter T3, FREE Routine 08/07/2024 1:50 PM DIGITAL ANALYTICS MANAGER TSH Routine 08/07/2024 1:50 PM DIGITAL ANALYTICS MANAGER T4, FREE Routine 08/07/2024 1:50 PM DIGITAL ANALYTICS MANAGER COPY(IES) SENT TO: Routine 08/07/2024 1:50 PM DIGITAL ANALYTICS MANAGER NM THYROID IMAGING Schedule Routine, Read Routine (OP Routine) 06/16/2024 1:44 PM DIGITAL ANALYTICS MANAGER Subclinical hyperthyroidism Multinodular goiter from Last 3 [...] US Electronically signed by: Eladia Neal M.D. Result [facility] us Edyta Matos MD IMG US PROCEDURES Final Result * COPY(IES) SENT TO: (08/07/2024 1:50 PM DIGITAL ANALYTICS MANAGER) COPY(IES) SENT TO: [facility] Comment: [address] [address] 08/07/2024 1:50 PM DIGITAL ANALYTICS MANAGER 08/07/2024 1:51 PM DIGITAL ANALYTICS MANAGER Edyta Matos MD LAB BLOOD ORDERABLES Final Resul t Performing Organization Address City/[facility] Co de Phone Number [facility] * T3, free (08/07/2024 1:50 PM DIGITAL ANALYTICS MANAGER) Free T3 3.2 2.3 - 4.2 pg/mL [facility] 08/07/2024 1:50 PM DIGITAL ANALYTICS MANAGER 08/07/2024 1:51 PM DIGITAL ANALYTICS MANAGER Result [facility] Edyta Matos MD LAB BLOOD ORDERABLES Final Resul t Performing Organization Address City/[facility] Co de Phone Number [facility] [address] [place] [address] * (ABNORMAL) TSH (08/07/2024 1:50 PM DIGITAL ANALYTICS MANAGER) TSH 0.07(L) 0.40 - 4.50 mIU/L [facility] 08/07/2024 1:50 PM DIGITAL ANALYTICS MANAGER 08/07/2024 1:51 PM DIGITAL ANALYTICS MANAGER Edyta Matos MD LAB BLOOD ORDERABLES Final Resul t Performing Organization Address City/[facility] Co de Phone Number [facility] [facility] [address] [place] [address] * T4, free (08/07/2024 1:50 PM DIGITAL ANALYTICS MANAGER) Free T4 0.9 0.8 - 1.8 ng/dL [facility] 08/07/2024 1:50 PM DIGITAL ANALYTICS MANAGER 08/07/2024 1:51 PM DIGITAL ANALYTICS MANAGER us Edyta Matos MD LAB BLOOD ORDERABLES Final Resul t Performing Organization Address [facility] Co de Phone Number [facility] [employer] [facility] [address] [place] [address] * NM Thyroid Imaging (06/16/2024 1:44 PM DIGITAL ANALYTICS MANAGER) Anatomical Region Laterality Modality N/A Nuclear Medicine 06/16/2024 4:22 PM DIGITAL ANALYTICS MANAGER Impressions 06/16/2024 4:26 PM DIGITAL ANALYTICS MANAGER Multinodular goiter, which is concordant with previous ultrasound findings dated 04/17/2024. Dictated by: Julius Shell M.D. The radiology attending physician has personally reviewed this study, and had reviewed and/or edited this written report and agrees with it. Electronically signed by: DO Angelica Tee 06/16/2024 4:26 PM DIGITAL ANALYTICS MANAGER EXAMINATION: THYROID SCINTIGRAPHY DATE: 06/16/2024 RADIOPHARMACEUTICAL: 10.66 [...] it. Electronically signed by: Tha Campos DO us Edyta Matos MD IMG NM PROCEDURES Final Result from Last 3 Months Insurance [facility] [employer] [facility] [address] [facility] [employer] [place] [address] Care Teams Neck Pinner Relationship Specialty Start Date End Date Dane Alvarez MD PCP - General Internal Medicine 09/14/23
--- OUTSIDE RECORDS SUMMARY | 2024-09-14 10:57 | XMS_ITS | Encounter Summary ---
Author Organization [facility] Address [address] [place] [address] Phone Care Team Providers Care Licensing Officer Name Role Phone Dane Alvarez MD Primary Care Provider [phone] Encounter Details Date Type Department Care Team (Late st Contact Info) Description 09/11/2024 Results Follow-Up [facility] Endocrinology Metabolism and Lipid [address] [facility] [address] [place] [address] [place] [address] Edyta Matos MD [address] [place] [address] Social History Tobacco Use Types Packs/Day Years [...] on filedocumented in this encounter Care Teams Licensing Officer Relationship Specialty Start Date End Date Dane Alvarez MD PCP - General Internal Medicine 09/14/23 documented as of this encounter
== END 2024-09-14 09:57 | disposition home or self-care (01) ==
PROVIDERS: PCP Internal Medicine; Visit Provider Internal Medicine
DX: M54.50 Low back pain, unspecified (principal); M47.814 Spondylosis without myelopathy or radiculopathy, thoracic region; M51.369 Other intervertebral disc degeneration, lumbar region without mention of lumbar back pain or lower extremity pain; M79.89 Other specified soft tissue disorders
CPT/HCPCS: 72148